=== PATIENT | male | born 1990 | race African-American/Black ===

== ENCOUNTER 2025-04-25 11:09 | Emergency (ER) | payer SELFPAY ==
[~2025-04-25] VITALS: Ht 180.3 cm; Wt 62.0 kg
[2025-04-25 11:16] VITALS: O2SAT 100
[2025-04-25 13:33] VITALS: BP 122/76; PULSE 70; RESP 16; TEMP 36.7; O2SAT 100
== END 2025-04-25 13:33 | disposition home or self-care (01) ==
LOC: ER 11:09
DX: S43.101A Unspecified dislocation of right acromioclavicular joint, initial encounter (principal); W19.XXXA Unspecified fall, initial encounter; Y93.89 Activity, other specified; Y92.89 Other specified places as the place of occurrence of the external cause; Y99.8 Other external cause status
CPT/HCPCS: 73030; 99283